=== PATIENT | female | born 1985 | race American Indian/Alaskan Native ===

== ENCOUNTER 2018-12-27 20:48 | Emergency (ER) | payer OTHER ==
[~2018-12-27] VITALS: Ht 162.6 cm; Wt 73.5 kg
[~2018-12-27 20:48] MED LIST: KEFLEX500 MG PO; NORCO 5-325 TA1 EACH PO; PRENATAL ONE T1 EACH; PRENATAL-FOLIC1 EACH PO
[2018-12-27] MEDS ORDERED: NORCO 5-325 TA1 EACH PO (23:56)
[2018-12-27] MEDS ORDERED: DOXYCYCLINE HY100 MG PO (23:56)
== END 2018-12-28 00:41 | disposition home or self-care (01) ==
LOC: ED 20:48
DX: N73.0 Acute parametritis and pelvic cellulitis (principal); Z88.1 Allergy status to other antibiotic agents
CPT/HCPCS: 80053; 81001; 83690; 84703; 85025; 87491; 87591; 96361; 96365; 96375; 99284-25; J0696; J1885; J7030

== ENCOUNTER 2019-02-20 19:48 | Emergency (ER) | payer OTHER ==
[~2019-02-20] VITALS: Ht 162.6 cm; Wt 69.4 kg
[~2019-02-20 19:48] MED LIST changes: +DOXYCYCLINE HY100 MG PO
[2019-02-20] MEDS ORDERED: DOXYCYCLINE HY100 M3 (19:58)
[2019-02-20] MEDS ORDERED: AZITHROMYCIN500 MG PO (22:23)
== END 2019-02-20 23:04 | disposition home or self-care (01) ==
LOC: ED 19:48
DX: N73.9 Female pelvic inflammatory disease, unspecified (principal); F17.200 Nicotine dependence, unspecified, uncomplicated; Z88.1 Allergy status to other antibiotic agents
CPT/HCPCS: 81001; 96372; 99284-25; J0696; J1885